=== PATIENT | male | born 1950 | race Caucasian/White ===

== ENCOUNTER 2019-08-02 22:08 | Inpatient (IN) | payer MEDICARE, OTHER ==
[~2019-08-02] VITALS: Ht 167.6 cm; Wt 71.9 kg
[~2019-08-02 22:08] MED LIST: ALBU0.63 NEB; ALPR0.5T10 PO; BACL10TA PO; CARB15DR2 EACHEYE; CHOL10002 PO; CITA40TA11 PO; DOCU-28 PO; FERR324T7 PO; FISH OIL 500 M1 EACH PO; GABA-534 PO; HYDR-4353 PO; HYDR25TA4 PO; IPRA4AER IH; LISI30TA4 PO; MOME0.242 INH; OMEG1CAP2 PO; OMEP-50 PO; ONDA8TAB13 PO; PANT-47 PO; PSYL1PAC11 PO; RANI300T7 PO; SENN-25 PO; SIMV10TA2 PO; TRAZ-251 PO
[2019-08-02] MEDS ORDERED: heparin 25,000 UNIT/250ml bag 250 ML IV SCH (22:19)
[2019-08-02] MEDS ORDERED: heparin 10,000 units/1 ML INJ IV PRN (22:20)
--- NOTE | 2019-08-02 22:25 | NUR ---
PT WAS ASLEEP, BUT THEN ABRUPTLY BECAME VERY AGITATED AND WOULD NOT HOLD STILL. HE WAS MOVING HIS LEGS, NOT ABLE TO DO AN EKG. PHLEB WAS TRYING TO DRAW AND NOT ABLE TO . PTS EYES CLOSED. HE WILL SAY "YEAH" BUT CANNOT FOLLOW SIMPLE COMMANDS. SUMMONED INTO THE ROOM STAT AND DR ZAVALA AT . HE REVIEWED CHART, ORDERS WERE PLACED.
[2019-08-02] MEDS ORDERED: morphine 4 MG/ML inj SYRINge IV STA (22:26)
[2019-08-02] MEDS ORDERED: LORazepam 2 mg/ml vial IV STA ×2 (22:26→22:54)
[2019-08-02] MEDS ORDERED: LORazepam 2 mg/ml vial ONE (22:27)
[2019-08-02] MEDS ORDERED: ipratropium/albuterol 3ml nebule NEB ONE (22:35)
--- NOTE | 2019-08-02 22:35 | NUR ---
ADD: WHEN THE PT WAS AGITATED, HE WAS NOT ABLE TO HOLD HIS OXYGEN SATS ON 4 L POST ATIVAN HE IS 89%, DR. ZAVALA BACK AT BS TO RECHECK ON HIM AND HE IS AWARE. PT A CHRONIC PAIN PATIENT WE WERE INFORMED.
[2019-08-02 22:53] LABS: BASOPHILS % (AUTO) 0.2 % (0-1); EOSINOPHILS % (AUTO) 0.1 % (0-6); HEMATOCRIT 35.2 % (42.0-52.0); HEMOGLOBIN 10.9 g/dl (14.0-17.9); LYMPHOCYTES # (AUTO) 0.5 X10'3 (1.1-4.8); LYMPHOCYTES % (AUTO) 5.5 % (21-51); MEAN CORPUSCULAR HEMOGLOBIN 26.1 PG (27.0-31.0); MEAN CORPUSCULAR VOLUME 84.3 FL (78-98); MEAN PLATELET VOLUME 9.4 FL (7.4-10.4); MONOCYTES # (AUTO) 0.1 X10'3 (0-0.9); NEUTROPHILS # (AUTO) 8.2 X10'3 (1.8-7.7); NEUTROPHILS % (AUTO) 93.2 % (42-75); PLATELET COUNT 196 X10'3 (140-440); RED BLOOD COUNT 4.17 X10'6 (4.70-6.10); RED CELL DISTRIBUTION WIDTH 16.9 % (11.5-14.5); WHITE BLOOD COUNT 8.8 X10'3 (4.5-11.0)
--- NOTE | 2019-08-02 22:54 | NUR ---
PT CONTINUES TO BE AGITATED AND CANNOT FOLLOW COMMANDS. MORPHINE AND ATIVAN ADMINISTERED. RT IN WITH PT. ABG DONE AND NOW ON NEB.
--- NOTE | 2019-08-02 23:00 | NUR ---
PT URINATED. HIS JEANS AND UNDERWEAR REMOVED
[2019-08-02 23:05] LABS: ABG BASE EXCESS 3.7 mmol/L (-2.0-3.0); ABG HCO3 30.9 mmol/L (22.0-26.0); ABG OXYGEN SATURATION 73.1 % (95-98); ABG PO2 (T) 40.9 mmHg (83-108); FCOHb 1.3 % (0.5-1.5); FMetHb 0.3 % (0.3-1.12); FO2Hb 71.9 % (94-100); TOTAL HEMOGLOBIN 11.4 G/dl (14.0-17.9)
[2019-08-02 23:06] LABS: ALANINE AMINOTRANSFERASE 33 U/L (12-78); ALBUMIN 3.5 G/DL (3.4-5.0); ALKALINE PHOSPHATASE 78 IU/L (46-116); ANION GAP 7 (8-16); ASPARTATE AMINO TRANSFERASE 39 U/L (10-37); BILIRUBIN,TOTAL 0.3 MG/DL (0.1-1.0); BLOOD UREA NITROGEN 29 MG/DL (7-18); BUN/CREATININE RATIO 23.8 (5.4-32.0); CALCIUM 8.6 MG/DL (8.5-10.1); CHLORIDE 100 MMOL/L (99-107); CREATININE 1.22 MG/DL (0.60-1.10); GLUCOSE 142 MG/DL (70-104); POTASSIUM 3.7 MMOL/L (3.5-5.1); SODIUM 136 MMOL/L (135-145); TOTAL CARBON DIOXIDE 29.4 MMOL/L (24-32); eGFR 59 ML/MIN
[2019-08-02] MEDS ORDERED: propofol 1000mg/100ml bottle 100 ML IV ONE (23:10)
--- NOTE | 2019-08-02 23:10 | NUR ---
BED SHEETS CHANGED
[2019-08-02] MEDS ORDERED: propofol 1000mg/100ml bottle 100 ML IV PRN (23:12)
[2019-08-02] MEDS ORDERED: rocuronium 10mg/ml inj IV STA (23:12)
[2019-08-02 23:13] LABS: ETHANOL < 0.010 GM/DL (0.0-0.010)
[2019-08-02] MEDS ORDERED: etomidate 2mg/ml inj. IV ONE (23:15)
--- NOTE | 2019-08-02 23:17 | NUR ---
RT AND SEVERAL RNS IN ROOM AWAITING
[2019-08-02 23:25] LABS: URINE AMPHETAMINE SCREEN NEGATIVE (Neg); URINE BARBITUATE SCREEN NEGATIVE (Neg); URINE BENZODIAZEPINES SCREEN NEGATIVE (Neg); URINE CANNABINOID SCREEN NEGATIVE (Neg); URINE COCAINE SCREEN NEGATIVE (Neg); URINE METHADONE SCREEN NEGATIVE (Neg); URINE OPIATE SCREEN POSITIVE (Neg); URINE PHENCYCLIDINE SCREEN NEGATIVE (Neg)
--- NOTE | 2019-08-02 23:32 | NUR ---
CXR COMPLETED. NG IN PLACE, BUT A LITTLE DEEP, PULLED BACK A BIT.
[2019-08-02] MEDS: FENTANYL-0.9 % NACL/PF 100 ML IV PRN (23:40)
[2019-08-02] MEDS: midazolam 100mg in NS 100ml 100 ML IV PRN (23:40)
[2019-08-02] MEDS ORDERED: normal saline 500ml IV soln 1,000 ML IV ONE (23:50)
[2019-08-03] VITALS (22 sets, daily range): BP systolic 93–128; BP diastolic 46–68
[2019-08-03 00:01] LABS: ABG BASE EXCESS 3.2 mmol/L (-2.0-3.0); ABG HCO3 30.6 mmol/L (22.0-26.0); ABG OXYGEN SATURATION 96.4 % (95-98); ABG PCO2 (T) 62.8 mmHg (35.0-45.0); ABG PH (T) 7.307 (7.350-7.450); ABG PO2 (T) 95.5 mmHg (83-108); FCOHb 0.9 % (0.5-1.5); FMetHb 0.3 % (0.3-1.12); FO2Hb 95.2 % (94-100); MINUTE VOLUME 8 L/min; PATIENT TEMPERATURE 37.3; PEEP 5 cm H2O; RESPIRATORY RATE 18 b/min; RESPIRATORY RATE (OBSERVED) 18 b/min; TIDAL VOLUME 400 mL; TOTAL HEMOGLOBIN 10.6 G/dl (14.0-17.9)
[2019-08-03] MEDS ORDERED: heparin 25,000 UNIT/250ml bag 250 ML IV SCH (00:36)
[2019-08-03] MEDS ORDERED: midazolam 100mg in NS 100ml 100 ML IV PRN (00:36)
[2019-08-03] MEDS ORDERED: FENTANYL-0.9 % NACL/PF 100 ML IV PRN (00:36)
[2019-08-03] MEDS ORDERED: ondansetron/PF 4mg/2ml inj IV PRN (00:40)
[2019-08-03] MEDS ORDERED: acetaminophen 325mg tablet PO PRN ×2 (00:40)
[2019-08-03] MEDS ORDERED: acetaminophen 650mg rectal suppository RC PRN (00:40)
[2019-08-03] MEDS ORDERED: albuterol 2.5 MG/3 ML nebule NEB PRN (00:40)
[2019-08-03] MEDS ORDERED: potassium Cl 20mEq/100mL bag 100 ML IV PRN (00:40)
[2019-08-03] MEDS ORDERED: heparin 10,000 units/1 ML INJ IV PRN (00:40)
[2019-08-03 01:12] LABS: HEMOGLOBIN A1C 5.8 % (4.5-6.2)
[2019-08-03 01:15] LABS: CLARITY,URINE CLEAR (Clear); COLOR,URINE YELLOW (Yellow); GLUCOSE, URINE NEGATIVE (Neg); KETONES,URINE NEGATIVE (Neg); LEUKOCYTE ESTERASE ,URINE NEGATIVE (Neg); NITRITES, URINE NEGATIVE (Neg); OCCULT BLOOD,URINE NEGATIVE (Neg); PH,URINE 5.5 (4.8-8.0); PROTEIN,URINE NEGATIVE (Neg); UROBILINOGEN,URINE 0.2 E.U/dL (0.2-1.0)
[2019-08-03 01:19] LABS: UA COLLECTION TYPE FOLEY CATH
[2019-08-03] MEDS: normal saline 1000ml 1,000 ML IV SCH ×3 (01:45→18:28)
[2019-08-03] MEDS: methylPREDNISolone sod succ/PF 40mg inj. IV SCH ×4 (01:47→20:23)
[2019-08-03 03:08] LABS: BASOPHILS % (AUTO) 0.1 % (0-1); EOSINOPHILS % (AUTO) 0 % (0-6); HEMATOCRIT 28.9 % (42.0-52.0); LYMPHOCYTES # (AUTO) 0.5 X10'3 (1.1-4.8); LYMPHOCYTES % (AUTO) 10.5 % (21-51); MEAN CORPUSCULAR HGB CONC 31.2 g/dL (33.0-36.5); MEAN CORPUSCULAR VOLUME 83.3 FL (78-98); MEAN PLATELET VOLUME 8.6 FL (7.4-10.4); MONOCYTES # (AUTO) 0.1 X10'3 (0-0.9); MONOCYTES % (AUTO) 2.3 % (2-12); NEUTROPHILS # (AUTO) 4.5 X10'3 (1.8-7.7); NEUTROPHILS % (AUTO) 87.1 % (42-75); PLATELET COUNT 138 X10'3 (140-440); RED BLOOD COUNT 3.47 X10'6 (4.70-6.10); RED CELL DISTRIBUTION WIDTH 16.4 % (11.5-14.5); WHITE BLOOD COUNT 5.2 X10'3 (4.5-11.0)
[2019-08-03] MEDS: ipratropium/albuterol 3ml nebule NEB SCH ×6 (03:51→22:51)
[2019-08-03 04:50] LABS: ABG BASE EXCESS 4.9 mmol/L (-2.0-3.0); ABG HCO3 30.7 mmol/L (22.0-26.0); ABG OXYGEN SATURATION 97.1 % (95-98); ABG PCO2 (T) 52.5 mmHg (35.0-45.0); ABG PH (T) 7.387 (7.350-7.450); ABG PO2 (T) 95.9 mmHg (83-108); ALLEN'S TEST Positive; FCOHb 0.5 % (0.5-1.5); FMetHb 0.3 % (0.3-1.12); FO2Hb 96.3 % (94-100); MINUTE VOLUME 8 L/min; PATIENT TEMPERATURE 37.4; PEEP 8 cm H2O; RESPIRATORY RATE 20 b/min; RESPIRATORY RATE (OBSERVED) 20 b/min; TIDAL VOLUME 400 mL; TOTAL HEMOGLOBIN 10.4 G/dl (14.0-17.9)
[2019-08-03 05:33] LABS: ALANINE AMINOTRANSFERASE 23 U/L (12-78); ALBUMIN 2.9 G/DL (3.4-5.0); ALKALINE PHOSPHATASE 62 IU/L (46-116); ANION GAP 6 (8-16); ASPARTATE AMINO TRANSFERASE 35 U/L (10-37); BILIRUBIN,TOTAL 0.2 MG/DL (0.1-1.0); BLOOD UREA NITROGEN 26 MG/DL (7-18); BUN/CREATININE RATIO 27.7 (5.4-32.0); CALCIUM 7.9 MG/DL (8.5-10.1); CHLORIDE 103 MMOL/L (99-107); CREATININE 0.94 MG/DL (0.60-1.10); GLUCOSE 141 MG/DL (70-104); POTASSIUM 3.5 MMOL/L (3.5-5.1); SODIUM 142 MMOL/L (135-145); TOTAL CARBON DIOXIDE 33.1 MMOL/L (24-32); TOTAL PROTEIN 5.9 G/DL (6.4-8.2); eGFR 80 ML/MIN
[2019-08-03 05:37] LABS: CHOL/HDL RATIO 1.7 (0.00-4.99); CHOLESTEROL 137 MG/DL (0-200); HDL CHOLESTEROL 79 MG/DL (35-60); LDL CHOLESTEROL 57 MG/DL (50-100); MAGNESIUM 1.9 MG/DL (1.5-2.4); PHOSPHORUS 3.6 MG/DL (2.3-4.5); TRIGLYCERIDES 39 MG/DL (20-135)
--- NOTE | 2019-08-03 06:33 | NUR ---
Problems reprioritized. Patient report given, questions answered & plan of care reviewed with Stephane ANDREWS.
--- NOTE | 2019-08-03 06:48 | NUR ---
Patient in room CICU 2011. I have received report from Patricia ANDREWS and had the opportunity to ask questions and assume patient care.
--- NOTE | 2019-08-03 08:00 | NUR ---
patient wakes up extremely agitated, shakes the entire bed by kicking his legs and tries to sit up and pull on his restraints to pull at his tube. patient will not follow commands or even open eyes to make eye contact when speaking to him. Sedation adjusted which works for a very short time.
[2019-08-03] MEDS: heparin 25,000 UNIT/250ml bag 250 ML IV SCH (09:08)
--- NOTE | 2019-08-03 09:30 | NUR ---
patient continues to wake up agitated, pulling at lines and restraints
[2019-08-03] MEDS: pantoprazole 40 MG vial IV SCH (09:37)
[2019-08-03] MEDS: CefTRIAXone 2gm/D5W 50ml 50 ML IV SCH (09:37)
[2019-08-03] MEDS: aspirin 81mg tab.chew OGT SCH (09:38)
[2019-08-03] MEDS: docusate sodium 100mg/10ml UD cup PO SCH ×2 (09:38→20:23)
[2019-08-03] MEDS: midazolam 100mg in NS 100ml 100 ML IV PRN ×2 (09:39→20:24)
[2019-08-03] MEDS: FENTANYL-0.9 % NACL/PF 100 ML IV PRN ×2 (09:40→20:25)
--- NOTE | 2019-08-03 10:30 | NUR ---
patient waking up, sits up in bed, cannot calm him down without adjusting sedation.
[2019-08-03] MEDS ORDERED: BUSP10TA11 PO (12:05)
--- NOTE | 2019-08-03 12:27 | NUR ---
per dr brownlee he does not want patient on heparin drip any longer, med has been dcd.
[2019-08-03] MEDS: azithromycin/NS 500mg/250ml 250 ML IV SCH (13:01)
[2019-08-03] MEDS ORDERED: rocuronium 10mg/ml inj IV ONE (14:00)
[2019-08-03] MEDS ORDERED: etomidate 2mg/ml inj. ONE (14:00)
[2019-08-03] MEDS ORDERED: sod chloride 0.9% 10ml flush syringe IV ONE (14:00)
--- NOTE | 2019-08-03 14:45 | NUR ---
Patient is intubated and sedated, presents with acute respiratory failure, COPD exacerbation, and pneumonia. Will monitor need for tube feeding if prolonged intubation. Rivera is low, 12, skin intact no open wounds. Recommend: 1. if prolonged intubation consider tube feeding to meet needs on vent 2. weight per rx Addendum: 08/03/19 at [address] Amended: Links added.
[2019-08-03] MEDS: piperacillin/tazo 3.375gm/50ml 50 ML IV SCH ×2 (15:49→23:42)
--- NOTE | 2019-08-03 18:30 | NUR ---
Patient in room CICU 2011. I have received report from DARRYL Moon and had the opportunity to ask questions and assume patient care.
--- NOTE | 2019-08-03 19:05 | NUR ---
Upon initial assessment, CVL appears to be out further than previous night and pillow saturated with leaking. Raeann Correa informed, CXR ordered and all lines switched to 2 distal ports. The two proximal ports are not to be used at this time.
--- NOTE | 2019-08-03 20:15 | NUR ---
Pt has been requiring a large amount of Fentanyl and Versed boluses as well as increases in the rate to maintain a light sedation. Pt is very wild when not fully sedated and tries to sit up in the bed and pull at tube.
[2019-08-03] MEDS: lactobacillus rhamnosus 10,000 MMU CELLS/CAPSULE PO SCH (20:23)
--- NOTE | 2019-08-03 23:00 | NUR ---
Per TAYLOR Barros - she spoke with Dr. Maxwell and he said it was fine to use 2 distal ports at this time and it should be re-evaluated tomorrow.
[2019-08-03] MEDS ORDERED: busPIRone 15mg tablet PO SCH (23:05)
[2019-08-04] VITALS (24 sets, daily range): BP systolic 111–165; BP diastolic 56–96
[2019-08-04] MEDS: midazolam 100mg in NS 100ml 100 ML IV PRN ×3 (00:57→09:28)
--- NOTE | 2019-08-04 01:30 | NUR ---
Pt continues to be very wild and not easy to sedate. Increase amounts of boluses require for pt to remain calm and not extubate himself.
[2019-08-04] MEDS: methylPREDNISolone sod succ/PF 40mg inj. IV SCH ×4 (02:06→20:37)
[2019-08-04] MEDS: mineral oil/petrolatum ophthal oint EACHEYE SCH ×4 (02:06→20:36)
[2019-08-04 02:28] LABS: BASOPHILS % (AUTO) 0.1 % (0-1); EOSINOPHILS % (AUTO) 0 % (0-6); HEMATOCRIT 30.9 % (42.0-52.0); HEMOGLOBIN 9.6 g/dl (14.0-17.9); LYMPHOCYTES # (AUTO) 0.3 X10'3 (1.1-4.8); LYMPHOCYTES % (AUTO) 4.3 % (21-51); MEAN CORPUSCULAR HEMOGLOBIN 26.1 PG (27.0-31.0); MEAN CORPUSCULAR HGB CONC 31.1 g/dL (33.0-36.5); MEAN CORPUSCULAR VOLUME 83.9 FL (78-98); MEAN PLATELET VOLUME 9.3 FL (7.4-10.4); MONOCYTES # (AUTO) 0.2 X10'3 (0-0.9); MONOCYTES % (AUTO) 3.1 % (2-12); NEUTROPHILS # (AUTO) 7.2 X10'3 (1.8-7.7); NEUTROPHILS % (AUTO) 92.5 % (42-75); PLATELET COUNT 161 X10'3 (140-440); RED BLOOD COUNT 3.68 X10'6 (4.70-6.10); RED CELL DISTRIBUTION WIDTH 17.1 % (11.5-14.5); WHITE BLOOD COUNT 7.7 X10'3 (4.5-11.0)
[2019-08-04 02:34] LABS: PARTIAL THROMBOPLASTIN TIME 23 SECONDS (22-32)
[2019-08-04] MEDS: ipratropium/albuterol 3ml nebule NEB SCH ×6 (02:48→23:22)
[2019-08-04 02:49] LABS: ALANINE AMINOTRANSFERASE 22 U/L (12-78); ALBUMIN 2.7 G/DL (3.4-5.0); ALBUMIN/GLOBULIN RATIO 0.9 (1.1-1.5); ALKALINE PHOSPHATASE 55 IU/L (46-116); ANION GAP 3 (8-16); ASPARTATE AMINO TRANSFERASE 23 U/L (10-37); BILIRUBIN,TOTAL 0.2 MG/DL (0.1-1.0); BLOOD UREA NITROGEN 24 MG/DL (7-18); BUN/CREATININE RATIO 38.1 (5.4-32.0); CALCIUM 8.1 MG/DL (8.5-10.1); CHLORIDE 107 MMOL/L (99-107); CREATININE 0.63 MG/DL (0.60-1.10); GLUCOSE 118 MG/DL (70-104); MAGNESIUM 2.2 MG/DL (1.5-2.4); PHOSPHORUS 3.2 MG/DL (2.3-4.5); POTASSIUM 4.4 MMOL/L (3.5-5.1); SODIUM 144 MMOL/L (135-145); TOTAL CARBON DIOXIDE 34.3 MMOL/L (24-32); TOTAL PROTEIN 5.7 G/DL (6.4-8.2); eGFR > 90 ML/MIN
[2019-08-04 03:06] LABS: ABG BASE EXCESS 5.4 mmol/L (-2.0-3.0); ABG HCO3 32.7 mmol/L (22.0-26.0); ABG OXYGEN SATURATION 94.4 % (95-98); ABG PCO2 (T) 63.4 mmHg (35.0-45.0); ABG PH (T) 7.332 (7.350-7.450); ABG PO2 (T) 77.2 mmHg (83-108); ALLEN'S TEST Positive; FMetHb 0.3 % (0.3-1.12); FO2Hb 93.2 % (94-100); PATIENT TEMPERATURE 37.1; PEEP 5 cm H2O; RESPIRATORY RATE 20 b/min; TIDAL VOLUME 400 mL; TOTAL HEMOGLOBIN 10.9 G/dl (14.0-17.9)
[2019-08-04] MEDS: FENTANYL-0.9 % NACL/PF 100 ML IV PRN ×2 (04:23→08:24)
--- NOTE | 2019-08-04 04:55 | NUR ---
Pt still very wild waking up with increased agitation approx every 30-60 minutes. Boluses still required for pt to remain calm and not extubate himself. The bolus parameters of 25mcg of Fentanyl and 2mg Versed not working for pt, he is requiring 50mcg of Fentanyl and 3mg of Versed.
--- NOTE | 2019-08-04 05:58 | NUR ---
Please see IV spreadsheet for final doses of Fentanyl and Versed including what was received from rate and boluses. Charge nurse as well as PA on duty aware of level of sedation needed for pt safety.
[2019-08-04] MEDS: CefTRIAXone 2gm/D5W 50ml 50 ML IV SCH (07:39)
[2019-08-04] MEDS: piperacillin/tazo 3.375gm/50ml 50 ML IV SCH ×3 (07:39→23:55)
[2019-08-04] MEDS: azithromycin/NS 500mg/250ml 250 ML IV SCH (07:39)
[2019-08-04] MEDS: lactobacillus rhamnosus 10,000 MMU CELLS/CAPSULE PO SCH ×2 (07:40→20:37)
[2019-08-04] MEDS: docusate sodium 100mg/10ml UD cup PO SCH ×2 (07:40→20:37)
[2019-08-04] MEDS: gabapentin 400mg capsule PO SCH ×4 (07:40→20:37)
[2019-08-04] MEDS: pantoprazole 40 MG vial IV SCH (07:40)
[2019-08-04] MEDS: vitamin D (cholecalciferol) 1,000 unit tablet PO SCH ×2 (07:40→20:37)
[2019-08-04] MEDS: psyllium seed 3.4 gm packet PO SCH (07:40)
[2019-08-04] MEDS: aspirin 81mg tab.chew OGT SCH (07:42)
[2019-08-04] MEDS: fluticasone nasal spray 16GM bottle NS SCH (08:00)
[2019-08-04] MEDS: ferrous gluconate 324mg tablet PO SCH ×2 (08:00→20:37)
[2019-08-04] MEDS ORDERED: atorvastatin 10mg tablet PO SCH (08:00)
[2019-08-04] MEDS ORDERED: SERT100T10 PO (10:26)
[2019-08-04] MEDS ORDERED: TRAM50TA2 PO (10:27)
[2019-08-04] MEDS: DEXMEDETOMIDINE 400MCG in NORMAL SALINE 100ml IV SCH ×2 (11:25→18:12)
[2019-08-04] MEDS: traMADol 50MG tablet PO SCH ×2 (13:13→20:39)
[2019-08-04] MEDS: heparin 25,000 UNIT/250ml bag 250 ML IV SCH (16:23)
[2019-08-04] MEDS: normal saline 1000ml 1,000 ML IV SCH ×2 (16:39→23:55)
--- NOTE | 2019-08-04 18:30 | NUR ---
Patient in room CICU 2011. I have received report from susan bailey and had the opportunity to ask questions and assume patient care.
--- NOTE | 2019-08-04 19:14 | NUR ---
pt is intubated and has fentanyl and precedex infusing. pt wakes up periodically and sits straight up in bed. pt continually shakes his head no but will not follow commands. lung sounds are clear throughout, bowel sounds present in all 4 quadrants. no bowel movement yet. og tube to low intermittent suction. morin catheter patent and draining. heels, elbows, coccyx is intact, blanchable, free from breakdown. will continue to monitor
[2019-08-04] MEDS: traZODone 50mg tablet PO SCH (20:37)
[2019-08-04] MEDS: busPIRone 15mg tablet PO SCH (20:38)
[2019-08-05] VITALS (23 sets, daily range): BP systolic 110–174; BP diastolic 72–99
[2019-08-05] MEDS ORDERED: lactulose 20gm/30ml cup PO PRN (00:40)
[2019-08-05] MEDS: FENTANYL-0.9 % NACL/PF 100 ML IV PRN ×2 (01:01→08:19)
[2019-08-05] MEDS: methylPREDNISolone sod succ/PF 40mg inj. IV SCH ×4 (02:06→20:33)
[2019-08-05] MEDS: mineral oil/petrolatum ophthal oint EACHEYE SCH ×4 (02:06→19:22)
[2019-08-05 02:41] LABS: BASOPHILS % (AUTO) 0.1 % (0-1); EOSINOPHILS % (AUTO) 0 % (0-6); HEMATOCRIT 34.3 % (42.0-52.0); HEMOGLOBIN 10.6 g/dl (14.0-17.9); LYMPHOCYTES # (AUTO) 0.2 X10'3 (1.1-4.8); LYMPHOCYTES % (AUTO) 2.4 % (21-51); MEAN CORPUSCULAR VOLUME 83.7 FL (78-98); MONOCYTES # (AUTO) 0.3 X10'3 (0-0.9); MONOCYTES % (AUTO) 4.3 % (2-12); NEUTROPHILS % (AUTO) 93.2 % (42-75); PLATELET COUNT 166 X10'3 (140-440); RED CELL DISTRIBUTION WIDTH 16.7 % (11.5-14.5); WHITE BLOOD COUNT 7.6 X10'3 (4.5-11.0)
[2019-08-05 02:50] LABS: ALANINE AMINOTRANSFERASE 23 U/L (12-78); ALBUMIN 2.8 G/DL (3.4-5.0); ALBUMIN/GLOBULIN RATIO 0.9 (1.1-1.5); ALKALINE PHOSPHATASE 59 IU/L (46-116); ANION GAP 5 (8-16); ASPARTATE AMINO TRANSFERASE 16 U/L (10-37); BILIRUBIN,TOTAL 0.2 MG/DL (0.1-1.0); BLOOD UREA NITROGEN 29 MG/DL (7-18); BUN/CREATININE RATIO 42.6 (5.4-32.0); CALCIUM 8.3 MG/DL (8.5-10.1); CHLORIDE 105 MMOL/L (99-107); CREATININE 0.68 MG/DL (0.60-1.10); GLUCOSE 148 MG/DL (70-104); MAGNESIUM 2.4 MG/DL (1.5-2.4); PARTIAL THROMBOPLASTIN TIME 22 SECONDS (22-32); POTASSIUM 3.9 MMOL/L (3.5-5.1); SODIUM 142 MMOL/L (135-145); TOTAL CARBON DIOXIDE 31.6 MMOL/L (24-32); eGFR > 90 ML/MIN
[2019-08-05] MEDS: ipratropium/albuterol 3ml nebule NEB SCH ×5 (03:14→20:24)
[2019-08-05 03:20] LABS: ABG BASE EXCESS 4.3 mmol/L (-2.0-3.0); ABG HCO3 30.3 mmol/L (22.0-26.0); ABG OXYGEN SATURATION 98.2 % (95-98); ABG PCO2 (T) 51.6 mmHg (35.0-45.0); ABG PH (T) 7.386 (7.350-7.450); ALLEN'S TEST Positive; FCOHb 0.5 % (0.5-1.5); FMetHb 0.3 % (0.3-1.12); FO2Hb 97.4 % (94-100); PATIENT TEMPERATURE 36.9; PEEP 5 cm H2O; RESPIRATORY RATE 20 b/min; RESPIRATORY RATE (OBSERVED) 20 b/min; TIDAL VOLUME 400 mL; TOTAL HEMOGLOBIN 11.8 G/dl (14.0-17.9)
[2019-08-05] MEDS: DEXMEDETOMIDINE 400MCG in NORMAL SALINE 100ml IV SCH ×4 (05:24→17:36)
[2019-08-05] MEDS: fluticasone nasal spray 16GM bottle NS SCH (08:00)
[2019-08-05] MEDS: traMADol 50MG tablet PO SCH ×3 (08:00→20:26)
[2019-08-05] MEDS: docusate sodium 100mg/10ml UD cup PO SCH ×2 (09:21→20:25)
[2019-08-05] MEDS: ferrous gluconate 324mg tablet PO SCH ×2 (09:21→20:26)
[2019-08-05] MEDS: aspirin 81mg tab.chew OGT SCH (09:21)
[2019-08-05] MEDS: lactobacillus rhamnosus 10,000 MMU CELLS/CAPSULE PO SCH ×2 (09:21→20:26)
[2019-08-05] MEDS: atorvastatin 10mg tablet PO SCH (09:21)
[2019-08-05] MEDS: pantoprazole 40 MG vial IV SCH (09:22)
[2019-08-05] MEDS: vitamin D (cholecalciferol) 1,000 unit tablet PO SCH ×2 (09:22→20:32)
[2019-08-05] MEDS: CefTRIAXone 2gm/D5W 50ml 50 ML IV SCH (09:22)
[2019-08-05] MEDS: sertraline 50mg tablet PO SCH (09:22)
[2019-08-05] MEDS: gabapentin 400mg capsule PO SCH ×4 (09:22→20:26)
[2019-08-05] MEDS: psyllium seed 3.4 gm packet PO SCH (09:22)
--- NOTE | 2019-08-05 10:54 | NUR ---
Patient extubated self. MD at bedside. patient in no apparent distress. 4L NC
[2019-08-05] MEDS ORDERED: ipratropium/albuterol 3ml nebule NEB PRN (12:10)
[2019-08-05] MEDS ORDERED: racepinephrine 11.25mg/0.5ml nebule NEB PRN (12:10)
[2019-08-05] MEDS: cefepime 1GM in D5W 50mL IVPB IV SCH ×2 (12:34→21:11)
--- NOTE | 2019-08-05 13:20 | NUR ---
PRESSURE ULCER EDUCATION: DEFINITION: A pressure ulcer is an area of skin that breaks down when you stay in one position too long. The constant pressure against the skin reduces the blood flow to that area and the affected tissue dies. CAUSES: "Being bedridden or in a wheelchair "Fragile skin "Having a chronic condition, such as diabetes or vascular disease "Inability to move certain parts of your body without assistance "Older age "Incontinence of urine or stool SYMPTOMS: "A reddened area that DOES NOT turn white when pressed on - this can be the beginning of a pressure ulcer "A blister, deep sore or a crater - these can be advanced pressure ulcers FIRST AID: "Relieve the pressure on this area "Keep the area clean and dry "Call your primary doctor if you see any of the above symptoms "DO NOT massage the area "DO NOT use a donut shaped or ring shaped pillow- these actually interfere with the blood flow and cause complications PREVENTION: "Check for pressure ulcers everyday "Change position at least every two hours to relieve pressure "Use items that help relieve pressure- pillows, sheepskin, foam padding, and powders. "Keep skin clean and dry "Eat healthy well balanced meals "Exercise daily IF YOU SEE ANY OF THESE SYMPTOMS WHILE IN THE HOSPITAL - TELL YOUR NURSE IMMEDIATELY. IF YOU SEE ANY OF THESE SYMPTOMS WHILE AT HOME OR HAVE ANY QUESTIONS OR CONCERNS ABOUT PRESSURE ULCERS - CALL YOUR PRIMARY DOCTOR IMMEDIATELY. Addendum: 08/05/19 at 1321 by Ann Causey RN Amended: Links added.
--- NOTE | 2019-08-05 15:52 | NUR ---
Patient self extubated today after intubated for acute respiratory failure, COPD exacerbation, and pneumonia. Rivera is low, 11, skin intact no open wounds. BSS done today by ; reports pt is edentulous with dentures at home, has difficulty chewing; recommend pt to take small bites and sips; pureed foods and thin liquids. Will monitor PO intake and need for ONS if suboptimal PO. Recommend: 1. continue pureed diet with thin liquids 2. monitor need for ONS if suboptimal PO Intake 3. Wt per rx Addendum: 08/05/19 at [address] Amended: Links added.
--- NOTE | 2019-08-05 16:28 | NUR ---
Notified MD of elevated SBP 140-160 throughout the day. no orders to treat
--- NOTE | 2019-08-05 18:30 | NUR ---
Patient in room CICU 2011. I have received report from Lalo ANDREWS and had the opportunity to ask questions and assume patient care.
[2019-08-05] MEDS: busPIRone 15mg tablet PO SCH (20:27)
[2019-08-05] MEDS: traZODone 50mg tablet PO SCH (20:27)
[2019-08-05] MEDS: HYDROcodone/acetaminophen 10/325mg tab PO PRN (22:22)
[2019-08-06] VITALS (20 sets, daily range): BP systolic 148–182; BP diastolic 76–98
[2019-08-06] MEDS: mineral oil/petrolatum ophthal oint EACHEYE SCH ×2 (01:55→08:00)
[2019-08-06] MEDS: methylPREDNISolone sod succ/PF 40mg inj. IV SCH ×2 (02:01→07:43)
[2019-08-06] MEDS: HYDROcodone/acetaminophen 10/325mg tab PO PRN ×6 (02:01→23:09)
[2019-08-06] MEDS: ipratropium/albuterol 3ml nebule NEB SCH ×4 (02:31→20:08)
--- NOTE | 2019-08-06 02:42 | NUR ---
[place] documentation: I have reviewed and agree with all interventions, assessments performed and documented by Seema ANDREWS. [place] Medication Administration: For this medication-pass time frame, all medication were reviewed, dispensed, administered and documented per hospital policy by Seema ANDREWS .
[2019-08-06 03:03] LABS: BASOPHILS % (AUTO) 0 % (0-1); EOSINOPHILS % (AUTO) 0 % (0-6); HEMATOCRIT 33.1 % (42.0-52.0); HEMOGLOBIN 10.4 g/dl (14.0-17.9); LYMPHOCYTES # (AUTO) 0.4 X10'3 (1.1-4.8); LYMPHOCYTES % (AUTO) 3.8 % (21-51); MEAN CORPUSCULAR HEMOGLOBIN 26.3 PG (27.0-31.0); MEAN CORPUSCULAR HGB CONC 31.4 g/dL (33.0-36.5); MEAN CORPUSCULAR VOLUME 83.8 FL (78-98); MEAN PLATELET VOLUME 8.9 FL (7.4-10.4); MONOCYTES # (AUTO) 0.5 X10'3 (0-0.9); MONOCYTES % (AUTO) 5.2 % (2-12); NEUTROPHILS # (AUTO) 8.7 X10'3 (1.8-7.7); PLATELET COUNT 163 X10'3 (140-440); RED BLOOD COUNT 3.95 X10'6 (4.70-6.10); RED CELL DISTRIBUTION WIDTH 16.6 % (11.5-14.5); WHITE BLOOD COUNT 9.6 X10'3 (4.5-11.0)
[2019-08-06 03:14] LABS: PARTIAL THROMBOPLASTIN TIME 27 SECONDS (22-32)
[2019-08-06 03:17] LABS: ALANINE AMINOTRANSFERASE 24 U/L (12-78); ALBUMIN 2.7 G/DL (3.4-5.0); ALBUMIN/GLOBULIN RATIO 0.9 (1.1-1.5); ALKALINE PHOSPHATASE 55 IU/L (46-116); ANION GAP 4 (8-16); ASPARTATE AMINO TRANSFERASE 19 U/L (10-37); BILIRUBIN,TOTAL 0.3 MG/DL (0.1-1.0); BLOOD UREA NITROGEN 24 MG/DL (7-18); BUN/CREATININE RATIO 42.1 (5.4-32.0); CALCIUM 8.3 MG/DL (8.5-10.1); CHLORIDE 104 MMOL/L (99-107); CREATININE 0.57 MG/DL (0.60-1.10); GLUCOSE 100 MG/DL (70-104); MAGNESIUM 2.2 MG/DL (1.5-2.4); PHOSPHORUS 3.2 MG/DL (2.3-4.5); SODIUM 139 MMOL/L (135-145); TOTAL CARBON DIOXIDE 30.7 MMOL/L (24-32); TOTAL PROTEIN 5.7 G/DL (6.4-8.2); eGFR > 90 ML/MIN
--- NOTE | 2019-08-06 06:00 | NUR ---
Patient in room CICU 2011. I have received report from Mary ANDREWS and had the opportunity to ask questions and assume patient care.
--- NOTE | 2019-08-06 06:22 | NUR ---
Problems reprioritized. Patient report given, questions answered & plan of care reviewed with Lalo ANDREWS.
[2019-08-06] MEDS: ferrous gluconate 324mg tablet PO SCH ×2 (07:41→20:00)
[2019-08-06] MEDS: sertraline 50mg tablet PO SCH (07:41)
[2019-08-06] MEDS: lactobacillus rhamnosus 10,000 MMU CELLS/CAPSULE PO SCH ×2 (07:42→21:11)
[2019-08-06] MEDS: vitamin D (cholecalciferol) 1,000 unit tablet PO SCH ×2 (07:42→21:12)
[2019-08-06] MEDS: HYDROchlorothiazide 25mg tablet PO SCH (07:43)
[2019-08-06] MEDS: aspirin 81mg tab.chew OGT SCH (07:43)
[2019-08-06] MEDS: pantoprazole 40 MG vial IV SCH (07:44)
[2019-08-06] MEDS: atorvastatin 10mg tablet PO SCH (07:44)
[2019-08-06] MEDS: psyllium seed 3.4 gm packet PO SCH (07:45)
[2019-08-06] MEDS: docusate sodium 100mg/10ml UD cup PO SCH ×2 (07:45→20:00)
[2019-08-06] MEDS: gabapentin 400mg capsule PO SCH ×4 (07:45→21:11)
[2019-08-06] MEDS: cefepime 1GM in D5W 50mL IVPB IV SCH ×2 (07:46→21:13)
[2019-08-06] MEDS: traMADol 50MG tablet PO SCH ×3 (07:46→21:12)
[2019-08-06] MEDS: fluticasone nasal spray 16GM bottle NS SCH (08:00)
--- NOTE | 2019-08-06 15:57 | NUR ---
Problems reprioritized. Patient report given, questions answered & plan of care reviewed with Margarita ANDREWS.
--- NOTE | 2019-08-06 16:56 | NUR ---
Patient transferred to [facility] on tele with all belongings. Patient assisted to bed and given call light; on 1L FL. Primary RN notified that patient arrived and settled in bed and that he was hypertensive prior to transfer. BLL, SRx2, CL in reach
[2019-08-06] MEDS ORDERED: cloNIDine 0.1 mg tablet PO ONE (17:20)
--- NOTE | 2019-08-06 18:15 | NUR ---
Problems reprioritized. Patient report given, questions answered & plan of care reviewed with DARRYL Foster.
[2019-08-06] MEDS: famotidine 20mg tablet PO SCH (21:11)
[2019-08-06] MEDS: traZODone 50mg tablet PO SCH (21:12)
[2019-08-06] MEDS: busPIRone 15mg tablet PO SCH (21:12)
[2019-08-07 03:00] VITALS: BP 163/85
[2019-08-07] MEDS: ipratropium/albuterol 3ml nebule NEB SCH ×4 (03:10→20:11)
[2019-08-07 06:00] VITALS: BP 151/93
--- NOTE | 2019-08-07 06:16 | NUR ---
Patient in room PCU 3025. I have received report from DARRYL Foster and had the opportunity to ask questions and assume patient care. Patient currently resting in bed, bed locked and low, call light in reach, no acute distress, will continue to monitor.
[2019-08-07] MEDS: HYDROcodone/acetaminophen 10/325mg tab PO PRN ×5 (07:00→23:38)
[2019-08-07] MEDS: psyllium seed 3.4 gm packet PO SCH (08:00)
[2019-08-07] MEDS: docusate sodium 100mg/10ml UD cup PO SCH (08:00)
--- NOTE | 2019-08-07 08:19 | NUR ---
Patient is refusing blood draw, explained to him why we need labs, he continues to refuse, says his "veins are shot" and it hurts too much to have them keep drawing blood.
[2019-08-07] MEDS: fluticasone nasal spray 16GM bottle NS SCH (08:27)
[2019-08-07] MEDS: cefepime 1GM in D5W 50mL IVPB IV SCH (08:27)
[2019-08-07] MEDS: gabapentin 400mg capsule PO SCH ×4 (08:28→21:48)
[2019-08-07] MEDS: predniSONE 20 mg tablet PO SCH (08:28)
[2019-08-07] MEDS: cloNIDine 0.1 mg tablet PO SCH ×2 (08:28→19:35)
[2019-08-07] MEDS: lactobacillus rhamnosus 10,000 MMU CELLS/CAPSULE PO SCH ×2 (08:28→19:35)
[2019-08-07] MEDS: vitamin D (cholecalciferol) 1,000 unit tablet PO SCH ×2 (08:29→19:35)
[2019-08-07] MEDS: HYDROchlorothiazide 25mg tablet PO SCH (08:29)
[2019-08-07] MEDS: sertraline 50mg tablet PO SCH (08:29)
[2019-08-07] MEDS: famotidine 20mg tablet PO SCH ×2 (08:29→19:35)
[2019-08-07] MEDS: aspirin 81mg tab.chew OGT SCH (08:29)
[2019-08-07] MEDS: traMADol 50MG tablet PO SCH ×3 (08:29→21:48)
[2019-08-07] MEDS: atorvastatin 10mg tablet PO SCH (09:31)
[2019-08-07] MEDS: ferrous gluconate 324mg tablet PO SCH ×2 (09:32→19:35)
[2019-08-07] MEDS: PHENYLEPH/MIN OIL/PETROLAT hemorrhoid oint 57GM tube RC PRN (11:12)
[2019-08-07 11:18] VITALS: BP 157/90
[2019-08-07] MEDS ORDERED: loperamide 2mg capsule PO PRN (13:15)
[2019-08-07] MEDS ORDERED: loperamide 2mg capsule PO ONE (13:15)
[2019-08-07] MEDS ORDERED: levoFLOXACIN 500mg tablet PO ONE (13:20)
[2019-08-07 15:00] VITALS: BP 156/91
--- NOTE | 2019-08-07 18:09 | NUR ---
Problems reprioritized. Patient report given, questions answered & plan of care reviewed with DARRYL Foster.
[2019-08-07 19:00] VITALS: BP 126/83
[2019-08-07] MEDS: traZODone 50mg tablet PO SCH (21:48)
[2019-08-07] MEDS: busPIRone 15mg tablet PO SCH (21:48)
[2019-08-07 23:00] VITALS: BP 118/82
[2019-08-08 03:00] VITALS: BP 165/95
[2019-08-08] MEDS: ipratropium/albuterol 3ml nebule NEB SCH ×2 (03:05→08:02)
[2019-08-08] MEDS: HYDROcodone/acetaminophen 10/325mg tab PO PRN ×2 (03:39→08:47)
[2019-08-08 06:00] VITALS: BP 174/93
[2019-08-08 06:27] LABS: ALANINE AMINOTRANSFERASE 24 U/L (12-78); ALBUMIN 2.9 G/DL (3.4-5.0); ALKALINE PHOSPHATASE 58 IU/L (46-116); ANION GAP 7 (8-16); ASPARTATE AMINO TRANSFERASE 19 U/L (10-37); BILIRUBIN,TOTAL 0.4 MG/DL (0.1-1.0); BLOOD UREA NITROGEN 11 MG/DL (7-18); BUN/CREATININE RATIO 18.3 (5.4-32.0); CALCIUM 8.7 MG/DL (8.5-10.1); CHLORIDE 103 MMOL/L (99-107); GLUCOSE 94 MG/DL (70-104); PHOSPHORUS 2.6 MG/DL (2.3-4.5); POTASSIUM 3.4 MMOL/L (3.5-5.1); SODIUM 140 MMOL/L (135-145); TOTAL CARBON DIOXIDE 30.4 MMOL/L (24-32); TOTAL PROTEIN 5.9 G/DL (6.4-8.2); eGFR > 90 ML/MIN
[2019-08-08 06:30] LABS: BASOPHILS % (AUTO) 0.1 % (0-1); EOSINOPHILS # (AUTO) 0.1 X10'3 (0-0.9); EOSINOPHILS % (AUTO) 0.4 % (0-6); HEMATOCRIT 39.3 % (42.0-52.0); HEMOGLOBIN 12.3 g/dl (14.0-17.9); LYMPHOCYTES # (AUTO) 2.5 X10'3 (1.1-4.8); LYMPHOCYTES % (AUTO) 19.8 % (21-51); MEAN CORPUSCULAR HEMOGLOBIN 25.7 PG (27.0-31.0); MEAN CORPUSCULAR HGB CONC 31.4 g/dL (33.0-36.5); MEAN CORPUSCULAR VOLUME 81.7 FL (78-98); MEAN PLATELET VOLUME 8.7 FL (7.4-10.4); MONOCYTES # (AUTO) 1.4 X10'3 (0-0.9); MONOCYTES % (AUTO) 11.3 % (2-12); NEUTROPHILS # (AUTO) 8.6 X10'3 (1.8-7.7); NEUTROPHILS % (AUTO) 68.4 % (42-75); PLATELET COUNT 213 X10'3 (140-440); RED BLOOD COUNT 4.81 X10'6 (4.70-6.10); RED CELL DISTRIBUTION WIDTH 16.5 % (11.5-14.5); WHITE BLOOD COUNT 12.5 X10'3 (4.5-11.0)
--- NOTE | 2019-08-08 06:41 | NUR ---
Patient in room PCU 3025. I have received report from DARRYL Foster and had the opportunity to ask questions and assume patient care. Pt awake and alert in bed. Left eye red and irritated. Pt has urinated. Resting comfortably in bed. Will continue to monitor.
[2019-08-08] MEDS: psyllium seed 3.4 gm packet PO SCH (08:00)
[2019-08-08] MEDS: predniSONE 20 mg tablet PO SCH ×3 (08:00→10:40)
[2019-08-08] MEDS: gabapentin 400mg capsule PO SCH (08:44)
[2019-08-08] MEDS: lactobacillus rhamnosus 10,000 MMU CELLS/CAPSULE PO SCH (08:44)
[2019-08-08] MEDS: aspirin 81mg tab.chew OGT SCH (08:45)
[2019-08-08] MEDS: atorvastatin 10mg tablet PO SCH (08:45)
[2019-08-08] MEDS: famotidine 20mg tablet PO SCH (08:46)
[2019-08-08] MEDS: fluticasone nasal spray 16GM bottle NS SCH (08:46)
[2019-08-08] MEDS: sertraline 50mg tablet PO SCH (08:46)
[2019-08-08] MEDS: vitamin D (cholecalciferol) 1,000 unit tablet PO SCH (08:46)
[2019-08-08] MEDS: cloNIDine 0.1 mg tablet PO SCH (08:46)
[2019-08-08] MEDS: HYDROchlorothiazide 25mg tablet PO SCH (08:46)
[2019-08-08] MEDS: ferrous gluconate 324mg tablet PO SCH (08:46)
[2019-08-08] MEDS: traMADol 50MG tablet PO SCH (08:47)
[2019-08-08] MEDS: PHENYLEPH/MIN OIL/PETROLAT hemorrhoid oint 57GM tube RC PRN (08:48)
[2019-08-08] MEDS ORDERED: ALPRAZolam 0.25mg tablet PO STA (09:28)
[2019-08-08] MEDS ORDERED: cloNIDine 0.1 mg tablet PO SCH (09:30)
[2019-08-08] MEDS ORDERED: LEVO500T89 PO (10:44)
[2019-08-08] MEDS ORDERED: CLON0.1T2 PO (10:44)
[2019-08-08] MEDS ORDERED: ASPI-1265 PO (10:44)
[2019-08-08] MEDS ORDERED: levoFLOXACIN 500mg tablet PO SCH (11:00)
--- NOTE | 2019-08-08 11:20 | NUR ---
Pt discharge. IV d/c'd, tele removed, all belongings sent with pt, wheeled down by staff, accompanied by daughter, left in private vehicle. Appt made with PCP SURVEY RODMAN by pt on 08/16/19. Discussed with pt and daughter which topics to bring up with the primary.
== END 2019-08-08 11:25 | disposition home or self-care (01) | DRG 280 ==
LOC: ER 22:09 → ED HOLD 08-03 01:23 → CICU 2S 08-03 01:23 → UNDOADMIN 08-03 01:23 → CMPBEDREQ 08-03 01:29 → ED HOLD 08-03 01:33 → CICU 2S 08-03 01:33 → PCU 3S 08-06 16:33
PROVIDERS: ADMIT Internal Medicine Critical Care Medicine; ATTEND Internal Medicine Critical Care Medicine
PROC: 02HV33Z Insertion of Infusion Device into Superior Vena Cava, Percutaneous Approach (ICD-10-PCS; 2019-08-03)
PROC: 5A1945Z Respiratory Ventilation, 24-96 Consecutive Hours (ICD-10-PCS; principal; 2019-08-05)
PROC: 0BH17EZ Insertion of Endotracheal Airway into Trachea, Via Natural or Artificial Opening (ICD-10-PCS; 2019-08-05)
DX: I21.4 Non-ST elevation (NSTEMI) myocardial infarction (principal); J15.6 Pneumonia due to other Gram-negative bacteria; J96.21 Acute and chronic respiratory failure with hypoxia; J96.22 Acute and chronic respiratory failure with hypercapnia; J44.0 Chronic obstructive pulmonary disease with (acute) lower respiratory infection; J44.1 Chronic obstructive pulmonary disease with (acute) exacerbation; I50.9 Heart failure, unspecified; I11.0 Hypertensive heart disease with heart failure; K59.00 Constipation, unspecified; F43.10 Post-traumatic stress disorder, unspecified; K21.9 Gastro-esophageal reflux disease without esophagitis; G89.29 Other chronic pain; Z88.6 Allergy status to analgesic agent; Z87.891 Personal history of nicotine dependence
CPT/HCPCS: 31500; 36415; 36556; 36600; 71045; 80053; 80061; 80305; 80320; 81003; 82803; 82948; 83036; 83605; 83735; 83880; 84100; 84145; 84478; 84484; 85018; 85025; 85610; 85730; 87040; 87070; 87077; 87081; 87186; 87502; 87503; 92508; 92616; 93005; 93306; 94002; 94003; 94640; 94667; 94668; 94760; 96365; 96366; 96375; 97161; 97530; 99285; C9113; G0378; J0456; J0692; J0696; J1644; J2060; J2250; J2270; J2543; J2704; J2920; J3010; J7040; J7512